=== PATIENT | male | born 1935 | race Caucasian/White ===

== ENCOUNTER 2020-01-07 10:47 | Outpatient (REF) | payer MEDICARE, SELFPAY ==
[2020-01-07 14:31] LABS: Estimated Average Glucose 131 mg/dL; Hemoglobin A1c % 6.2 %
[2020-01-07 14:46] LABS: Cholesterol 149 mg/dL; HDL Cholesterol 35 mg/dL; LDL Cholesterol Calculated 83 mg/dl; Triglycerides 158 mg/dL
== END 2020-01-07 10:48 | disposition home or self-care (01) ==
LOC: HO.10HDL 10:47
PROVIDERS: PCP Internal Medicine; Visit Provider Internal Medicine
DX: E11.69 Type 2 diabetes mellitus with other specified complication (principal); E78.5 Hyperlipidemia, unspecified
CPT/HCPCS: 80061; 83036

== ENCOUNTER 2020-02-26 12:09 | Outpatient (REF) | payer MEDICARE, SELFPAY ==
[2020-02-26 14:36] LABS: Estimated Average Glucose 128 mg/dL; Hemoglobin A1c % 6.1 %
[2020-02-26 14:59] LABS: Cholesterol 134 mg/dL; HDL Cholesterol 32 mg/dL; LDL Cholesterol Calculated 70 mg/dl; Triglycerides 160 mg/dL
== END 2020-02-26 12:10 | disposition home or self-care (01) ==
LOC: HO.10HDL 12:09
PROVIDERS: Visit Provider Internal Medicine
DX: E11.9 Type 2 diabetes mellitus without complications (principal)
CPT/HCPCS: 36415; 80061; 83036

== ENCOUNTER 2020-06-18 08:33 | Outpatient (REF) | payer MEDICARE, SELFPAY ==
[2020-06-18 10:00] LABS: MANUAL DIFF FLAG NO
[2020-06-18 10:06] LABS: Basophils Percent Auto 0.3 % (0-2); Eosinophils Absolute Auto 0.2 X10*3/uL (0.0-0.4); Eosinophils Percent Auto 2.7 % (0-4); Hematocrit 45.9 % (42-52); Hemoglobin 14.9 g/dl (14.0-18.0); Imm Gran Abs Auto 0.02 X10*3/uL (0.00-0.03); Imm Gran Pct Auto 0.3 % (0.0-0.4); Lymphocytes Absolute Auto 1.8 X10*3/uL (1.2-4.9); Mean Corpuscular HGB Conc 32.5 g/dl (31.0-36.0); Mean Corpuscular Hemoglobin 31.4 pg (27.0-33.0); Mean Corpuscular Volume 96.6 fL (80-98); Monocytes Absolute Auto 0.6 X10*3/uL (0.1-1.2); Monocytes Percent Auto 7.4 % (2-11); Neutrophils Absolute Auto 4.8 X10*3/uL (2.0-8.3); Neutrophils Percent Auto 65.3 % (45-73); Platelet Count 185 X10*3/uL (160-400); Red Blood Count 4.75 X10*6/uL (4.60-5.80); Red Cell Distribution Width 13.2 % (11.0-16.0); White Blood Count 7.4 X10*3/uL (4.8-10.8)
[2020-06-18 10:10] LABS: Estimated Average Glucose 143 mg/dL; Hemoglobin A1c % 6.6 %
[2020-06-18 10:33] LABS: Alanine Aminotransferase 15 U/L (0-40); Alkaline Phosphatase 48 U/L (39-117); Anion Gap 13 (12-20); Aspartate Amino Transferase 15 U/L (5-37); Bilirubin Total 0.8 mg/dL (0.0-1.0); Blood Urea Nitrogen 20 mg/dL (9-16); Calcium 9.3 mg/dL (8.4-10.2); Carbon Dioxide 26 mmol/L (22-29); Chloride 105 mmol/L (96-108); Cholesterol 144 mg/dL; Estimated Glomerular Filt Rate > 60; Glucose Fasting 140 mg/dL (60-99); HDL Cholesterol 31 mg/dL; LDL Cholesterol Calculated 84 mg/dl; Potassium 4.7 mmol/L (3.3-5.1); Sodium 139 mmol/L (135-145); Total Protein 6.9 g/dL (6.5-8.0); Triglycerides 148 mg/dL
== END 2020-06-18 08:34 | disposition home or self-care (01) ==
LOC: HO.10HDL 08:33
PROVIDERS: Visit Provider Internal Medicine
DX: Z00.00 Encounter for general adult medical examination without abnormal findings (principal); E11.9 Type 2 diabetes mellitus without complications
CPT/HCPCS: 36415; 80053; 80061; 83036; 85025

== ENCOUNTER 2020-08-27 10:07 | Outpatient (REF) | payer MEDICARE, SELFPAY ==
--- NOTE | ~2020-08-27 | XR_ITS ---
EXAMINATION: XR CHEST CLINICAL INFORMATION: Cough COMPARISON: Previous chest x-ray April 2018 TECHNIQUE: 2 views of the chest were obtained. FINDINGS: The cardiac silhouette is slightly enlarged but stable. The thoracic aorta is tortuous and calcified. Hilar and mediastinal contours are otherwise unremarkable. The lung volumes are low. There are increased interstitial markings suggestive of interstitial lung disease. There is no pleural effusion. There are degenerative changes of the spine and ossification of the anterior longitudinal ligament. XR/XR chest 2V IMPRESSION: Slightly enlarged cardiac silhouette. Interstitial lung disease. This could be better evaluated with chest CT scan.
== END 2020-08-27 10:08 | disposition home or self-care (01) ==
LOC: HO.XRAY 10:07
PROVIDERS: PCP Internal Medicine; Visit Provider Nurse Practitioner Family
DX: R05 Cough (principal)
CPT/HCPCS: 71046

== ENCOUNTER 2020-09-01 10:01 | Day surgery (SDC) | payer MEDICARE, SELFPAY ==
--- NOTE | 2020-08-27 14:16 | MHC.SHP ---
Pre-Procedural Eval Section A Date of Service: 08/27/20 The patient is an INPATIENT: No The History & Physical has been completed within 30 days and I have reviewed it.: Yes Section B Chief Complaint: cataract Allergies: Allergies Allergy/AdvReac Type Severity Reaction Status Date / Time No Known Allergies Allergy Verified 08/27/20 09:43 Plan Diagnosis/Plan: Unchanged I have reviewed the history and physical and performed a pertinent physical examination on my patient. No changes have occurred unless specified.
[2020-08-27 15:40] VITALS: BMI 25.2
--- NOTE | 2020-08-29 10:19 | P.CONAN_ITS ---
Documented by User: Esperanza Tellez 08/29/20 10:29 HPI - Anesthesia Eval Consult details Narrative: 85yo M for Left Cataract Multifocal with IOL Insertion PCP cleared Recent sick visit with nasal congestion and productive cough. Per pt, started on Zpak and feeling much better. Will be finished Zpak by DOS. No previous cataract on record. [facility] Active Problems Active Problems: All Active Problems (Updated 08/28/20 @ 09:14 by ANGEL Craig) Enlarged heart (Acute) Interstitial lung disease (Acute) Productive cough (Acute) Preop exam for internal medicine (Acute) Diabetes mellitus (Acute) Hypertension (Acute) Hyperlipidemia associated with type 2 diabetes mellitus (Acute) Past Medical History Medical History Angina pectoris COVID-19 vaccine series completed Elevated cholesterol Hard of hearing HTN (hypertension) Type II diabetes mellitus Family History Family History Father No problems noted. Mother No problems noted. Surgical History Surgical History Basal cell carcinoma H/O rectal polypectomy Hx of colonoscopy Social History Social History Housing: Apartment Are you a primary long term care social worker to a significant other at home: No Do you presently have visiting nurse or other home services: No Alcohol intake: never Patient Tobacco Use Status: Former Tobacco user Tobacco use type: Cigarette Use of substances other than those prescribed or required for medical reasons: No Have you been hit, kicked, punched, or otherwise hurt by someone within the past year? If so, by whom?: No Advance Directives: No Advance Directives Information Provided: No Advance Directives on File: No Recently lost weight without trying: No Eating poorly because of decreased appetite: No Nutrition Risks: No Nutritional Risk Current occupational status: retired Meds Allergies Allergy/AdvReac Type Severity Reaction Status Date / Time No Known Allergies Allergy Verified 08/27/20 09:43 Home Medications Medication Instructions Recorded Confirmed Last Taken Type nitroglycerin 0.4 mg sublingual 0.4 mg SUBLINGUAL Q5M PRN 11/06/19 08/27/20 Unknown History tablet Exam Exam Date and Time: August 29, 2020 1019 Height,Weight and Vital Signs: Height 5 ft 11 in Weight 82.1 kg Assessment and Plan Assessment Anesthesia Assessment: Chart Reviewed Documented by User: Latisha Morrow 09/01/20 11:52 [facility] Past Medical History Medical History Angina pectoris COVID-19 vaccine series completed Elevated cholesterol Hard of hearing HTN (hypertension) Type II diabetes mellitus Family History Family History Father No problems noted. Mother No problems noted. Surgical History Surgical History Basal cell carcinoma H/O rectal polypectomy Hx of colonoscopy Social History Social History Housing: Apartment Are you a primary long term care social worker to a significant other at home: No Do you presently have visiting nurse or other home services: No Alcohol intake: never Patient Tobacco Use Status: Former Tobacco user Tobacco use type: Cigarette Use of substances other than those prescribed or required for medical reasons: No Have you been hit, kicked, punched, or otherwise hurt by someone within the past year? If so, by whom?: No Advance Directives: No Advance Directives Information Provided: No Advance Directives on File: No Recently lost weight without trying: No Eating poorly because of decreased appetite: No Nutrition Risks: No Nutritional Risk Current occupational status: retired Meds Allergies Allergy/AdvReac Type Severity Reaction Status Date / Time No Known Allergies Allergy Verified 08/27/20 09:43 Home Medications Medication Instructions Recorded Confirmed Last Taken Type nitroglycerin 0.4 mg sublingual 0.4 mg SUBLINGUAL Q5M PRN 11/06/19 08/27/20 Unknown History tablet Exam Airway Mallampati Class: II TM Dist: >3cm Neck ROM: Full Denture: Upper Heart: rrr Lungs: cta Assessment and Plan Assessment Anesthesia Assessment: Anesthesia Plan Discussed and Chart Reviewed Final Anesthetic Review NPO: Yes ASA Class: III Final Preanesthetic Review: No Changes in Pt Med Stat and Consent Obtai natalie/Reviewed Patient Risk: Low Procedure Risk: Low Anesthetic Plan Anesthetic Plan: MAC: Disposition: Standard PACU
[2020-09-01 10:54] LABS: Glucose, Whole Blood 128 mg/dL (60-115)
[2020-09-01 11:24] VITALS: BP 183/77; PULSE 56; RESP 20; TEMP 36.4; O2SAT 96
[2020-09-01] MEDS: Lactated Ringers 500 ML 50 ML IV (11:27)
[2020-09-01] MEDS: Tetracaine HCl/PF 0.5% Oph Sol 4 ML DROPS 1 DROP EYE-LEFT (11:28)
[2020-09-01] MEDS: Tropicamide 1 % Ophth Sol 3 ML BTL 1 DROP EYE-LEFT ×3 (11:28→11:29)
[2020-09-01] MEDS: Phenylephrine HCL 2.5% Oph SoL 2 ML BOTTLE 1 DROP EYE-LEFT ×3 (11:28→11:29)
--- NOTE | 2020-09-01 12:39 | HO.PNOPHT ---
Ophthalmology Procedure Procedure Date of Service: 09/01/20 Ophthalmology Viscoelastic: Healromán Duet Dual Pack Pro Ophthalmology Lenses: [id number] [id number] (19) Procedure Notes: PREOPERATIVE DIAGNOSIS: Decreased visual acuity left eye secondary to cataract POSTOPERATIVE DIAGNOSIS: Same PROCEDURE: Left cataract extraction with intraocular lens insertion SURGEON: Mina Streeter M.D. ANESTHESIA: Topical/MAC ESTIMATED BLOOD LOSS: None COMPLICATIONS: None After obtaining informed consent, the patient was brought to the operation room suite and placed in the supine position. After adequate sedation per anesthesia, topical drops of Tetracaine were given to the left eye. The eye was then prepped and draped in the usual sterile fashion. The operating room microscope was then positioned over the operative eye and a lid speculum placed. A paracentesis was created. Viscoelastic was then instilled into the anterior chamber. A three plane incision was then created temporally, utilizing a 2.85 mm keratome. Capsulotomy forceps were then utilized to create a circular tear capsulotomy. Hydrodissection and hydrodelineation were carried out until adequate mobilization of the nucleus occurred. Phacoemulsification was then utilized to remove the dense central nucleus followed by removal of the cortical material utilizing the automated aspiration irrigation unit. Viscoat elastic was instilled into the posterior capsular bag followed by placement of a posterior chamber intraocular lens without difficulty. The residual Viscoat elastic was then removed utilizing the automated IA machine. The wound was check and found to be watertight. The patient tolerated the procedure well and the lid speculum was removed. Intracameral injection of Vigamox 0.1 mL followed by a subtenon injection of Kenalog-40 0.2 mL were administered. The patient will be seen in the a.m.
[2020-09-01 13:13] VITALS: BP 176/72; PULSE 52; RESP 16; TEMP 36.2; O2SAT 95
== END 2020-09-01 13:25 | disposition home or self-care (01) ==
PROVIDERS: PCP Internal Medicine; Visit Provider Ophthalmology
PROC: (CPT 66985; principal; 2020-09-01 12:40)
DX: H25.12 Age-related nuclear cataract, left eye (principal); H52.4 Presbyopia; I20.9 Angina pectoris, unspecified; I10 Essential (primary) hypertension; E11.9 Type 2 diabetes mellitus without complications; Z87.891 Personal history of nicotine dependence; Z85.828 Personal history of other malignant neoplasm of skin; Z79.84 Long term (current) use of oral hypoglycemic drugs; Z79.899 Other long term (current) drug therapy; Z86.19 Personal history of other infectious and parasitic diseases
CPT/HCPCS: 66984; 82947; J2250; J3010; J3300; V2632

== ENCOUNTER 2020-09-11 09:55 | Outpatient (REF) | payer MEDICARE, SELFPAY ==
[2020-09-11 10:51] LABS: MANUAL DIFF FLAG NO
[2020-09-11 11:08] LABS: Basophils Percent Auto 0.5 % (0-2); Eosinophils Absolute Auto 0.1 X10*3/uL (0.0-0.4); Hemoglobin 15.4 g/dl (14.0-18.0); Imm Gran Abs Auto 0.02 X10*3/uL (0.00-0.03); Imm Gran Pct Auto 0.4 % (0.0-0.4); Lymphocytes Absolute Auto 1.4 X10*3/uL (1.2-4.9); Mean Corpuscular HGB Conc 32.8 g/dl (31.0-36.0); Mean Corpuscular Hemoglobin 31.4 pg (27.0-33.0); Mean Corpuscular Volume 95.9 fL (80-98); Mean Platelet Volume 11.1 fL (9.4-12.4); Monocytes Absolute Auto 0.4 X10*3/uL (0.1-1.2); Monocytes Percent Auto 6.9 % (2-11); Neutrophils Absolute Auto 3.7 X10*3/uL (2.0-8.3); Neutrophils Percent Auto 65.2 % (45-73); Platelet Count 169 X10*3/uL (160-400); Red Cell Distribution Width 13.4 % (11.0-16.0); White Blood Count 5.6 X10*3/uL (4.8-10.8)
[2020-09-11 11:10] LABS: Estimated Average Glucose 140 mg/dL; Hemoglobin A1c % 6.5 %
[2020-09-11 11:28] LABS: Alanine Aminotransferase 16 U/L (0-40); Alkaline Phosphatase 51 U/L (39-117); Anion Gap 13 (12-20); Aspartate Amino Transferase 20 U/L (5-37); Bilirubin Total 0.9 mg/dL (0.0-1.0); Blood Urea Nitrogen 18 mg/dL (9-16); Calcium 9.1 mg/dL (8.4-10.2); Carbon Dioxide 26 mmol/L (22-29); Chloride 106 mmol/L (96-108); Cholesterol 129 mg/dL; Estimated Glomerular Filt Rate 56; Glucose Fasting 140 mg/dL (60-99); HDL Cholesterol 33 mg/dL; LDL Cholesterol Calculated 69 mg/dl; Potassium 4.6 mmol/L (3.3-5.1); Sodium 140 mmol/L (135-145); Total Protein 7.2 g/dL (6.5-8.0); Triglycerides 135 mg/dL
[2020-09-11 11:29] LABS: B Type Natriuretic Peptide 88 pg/mL (<100)
== END 2020-09-11 09:56 | disposition home or self-care (01) ==
LOC: HO.LAB 09:55
PROVIDERS: Absent Provider Internal Medicine; PCP Internal Medicine; Visit Provider Nurse Practitioner Family
DX: I51.7 Cardiomegaly (principal); J84.9 Interstitial pulmonary disease, unspecified; E11.65 Type 2 diabetes mellitus with hyperglycemia
CPT/HCPCS: 36415; 80053; 80061; 82947; 83036; 83880; 85025

== ENCOUNTER 2020-09-22 08:51 | Day surgery (SDC) | payer MEDICARE, SELFPAY ==
[2020-08-27 15:45] VITALS: BMI 25.2
--- NOTE | 2020-09-22 07:06 | MHC.SHP ---
Pre-Procedural Eval Section A Date of Service: 09/22/20 Section B Chief Complaint: cataract Allergies: Allergies Allergy/AdvReac Type Severity Reaction Status Date / Time No Known Allergies Allergy Verified 08/27/20 09:43 Plan I have reviewed the history and physical and performed a pertinent physical examination on my patient. No changes have occurred unless specified.
[2020-09-22 12:05] VITALS: BP 151/60; PULSE 54; RESP 18; TEMP 36.1; O2SAT 98
[2020-09-22 12:16] LABS: Glucose, Whole Blood 125 mg/dL (60-115)
[2020-09-22] MEDS: Lactated Ringers 500 ML 50 ML IVCONT (12:20)
[2020-09-22] MEDS: Tetracaine HCl/PF 0.5% Oph Sol 4 ML DROPS 1 DROP EYE-RIGHT (12:23)
[2020-09-22] MEDS: Tropicamide 1 % Ophth Sol 3 ML BTL 1 DROP EYE-RIGHT ×3 (12:24→12:33)
[2020-09-22] MEDS: Phenylephrine HCL 2.5% Oph SoL 2 ML BOTTLE 1 DROP EYE-RIGHT ×3 (12:26→12:35)
--- NOTE | 2020-09-22 12:40 | HO.ANESPROP2 ---
HPI - Anesthesia Eval Consult details Narrative: aright eye cataract PMF Active Problems Active Problems: All Active Problems (Updated 08/28/20 @ 09:14 by ANGEL Craig) Enlarged heart (Acute) Interstitial lung disease (Acute) Productive cough (Acute) Preop exam for internal medicine (Acute) Diabetes mellitus (Acute) Hypertension (Acute) Hyperlipidemia associated with type 2 diabetes mellitus (Acute) Past Medical History Medical History Angina pectoris COVID-19 vaccine series completed Elevated cholesterol Hard of hearing HTN (hypertension) Type II diabetes mellitus Family History Family History Father No problems noted. Mother No problems noted. Family history of problems with anesthesia: No Surgical History Surgical History Basal cell carcinoma H/O rectal polypectomy Hx of colonoscopy History of Problems with Anesthesia: No Social History Social History Housing: Apartment Are you a primary home care administrator to a significant other at home: No Do you presently have visiting nurse or other home services: No Alcohol intake: never Patient Tobacco Use Status: Former Tobacco user Tobacco use type: Cigarette Use of substances other than those prescribed or required for medical reasons: No Have you been hit, kicked, punched, or otherwise hurt by someone within the past year? If so, by whom?: No Are you DNR?: No Advance Directives: No Advance Directives Information Provided: No Advance Directives on File: No Recently lost weight without trying: No Eating poorly because of decreased appetite: No Nutrition Risks: No Nutritional Risk Current occupational status: retired Meds Allergies Allergy/AdvReac Type Severity Reaction Status Date / Time No Known Allergies Allergy Verified 09/22/20 11:55 Active Medications: Current Medications Generic Name Dose Route Start Last Admin Trade Name Freq PRN Reason Stop Dose Admin Lactated Ringer's 500 mls @ 50 mls/hr 09/22/20 07:45 09/22/20 12:20 Lr IVCONT 50 mls/hr .Q10H CARLI Administration Povidone Iodine 1 appl 09/22/20 07:06 Povidone Iodine 5 % Ophth Soln 30 Ml Bottle EYE-RIGHT PREOP PRN Pre-Op Surgical Implant Prophy Home Medications Medication Instructions Recorded Confirmed Last Taken Type nitroglycerin 0.4 mg sublingual 0.4 mg SUBLINGUAL Q5M PRN 11/06/19 08/27/20 Unknown History tablet (Nitrostat) Exam Exam Date and Time: September 22, 2020 1240 Height,Weight and Vital Signs: Height 5 ft 11 in Weight 82.1 kg Last Vital Signs Temp 97.0 F 09/22/20 12:05 Pulse 54 09/22/20 12:05 Resp 18 09/22/20 12:05 BP 151/60 H 09/22/20 12:05 Pulse Ox 98 09/22/20 12:05 Pertinent Lab Results Pertinent Lab Results: Laboratory Tests 09/22/20 12:12 POC Glucose 125 H Airway Mallampati Class: II TM Dist: >3cm Neck ROM: Full Denture: Upper and Lower Loose/Missing/Broken Teeth: Yes Heart: rrr +s1s2 Lungs: cta b/l Assessment and Plan Assessment Anesthesia Assessment: Anesthesia Plan Discussed and Chart Reviewed Final Anesthetic Review Family History of Problems with Anesthesia: No History of Problems with Anesthesia: No NPO: Yes ASA Class: III Final Preanesthetic Review: No Changes in Pt Med Stat, Meds/Allgs Chart Reviewed, Consent Obtained/Reviewed and Anes Risks/Benef Reviewed Patient Risk: Intermediate Procedure Risk: Low Assessment/Block/Sedation in SS: Assess/Block/Sedation-SS Anesthetic Plan Anesthetic Plan: MAC: and Agree w/ Assess. and Plan Disposition: Standard PACU
--- NOTE | 2020-09-22 13:31 | HO.PNOPHT ---
Ophthalmology Procedure Procedure Date of Service: 09/22/20 Ophthalmology Viscoelastic: Gabrielle Jacobst Dual Pack Pro Ophthalmology Lenses: TECSAJI [id number] (19) Procedure Notes: PREOPERATIVE DIAGNOSIS: Decreased visual acuity right eye secondary to cataract POSTOPERATIVE DIAGNOSIS: Same PROCEDURE: Right cataract extraction with intraocular lens insertion SURGEON: Mina Streeter M.D. ANESTHESIA: Topical/MAC ESTIMATED BLOOD LOSS: None COMPLICATIONS: None After obtaining informed consent, the patient was brought to the operating room suite and placed in the supine position. After adequate sedation per anesthesia, topical drops of Tetracaine were given to the right eye. The eye was then prepped and draped in the usual sterile fashion. The operating room microscope was then positioned over the operative eye and a lid speculum placed. A paracentesis was created. Viscoelastic was then instilled into the anterior chamber. A three plane incision was then created temporally, utilizing a 2.85 mm keratome. Capsulotomy forceps were then utilized to create a circular tear capsulotomy. Hydrodissection and hydrodelineation were carried out until adequate mobilization of the nucleus occurred. Phacoemulsification was then utilized to remove the dense central nucleus followed by removal of the cortical material utilizing the automated aspiration irrigation unit. Viscoelastic was instilled into the posterior capsular bag followed by placement of a posterior chamber intraocular lens without difficulty. The residual Viscoelastic was then removed utilizing the automated IA machine. The wound was checked and found to be watertight. The patient tolerated the procedure well and the lid speculum was removed. Intracameral injection of Vigamox 0.1 mL followed by a subtenon injection of Kenalog-40 0.2 mL were administered. The patient will be seen in the a.m.
[2020-09-22 13:57] VITALS: BP 155/74; PULSE 52; RESP 18; TEMP 36.2; O2SAT 98
== END 2020-09-22 14:06 | disposition home or self-care (01) ==
PROVIDERS: PCP Internal Medicine; Visit Provider Ophthalmology
PROC: (CPT 66985; principal; 2020-09-22 12:10)
DX: H25.11 Age-related nuclear cataract, right eye (principal); H52.4 Presbyopia; I10 Essential (primary) hypertension; E11.9 Type 2 diabetes mellitus without complications; Z79.84 Long term (current) use of oral hypoglycemic drugs; Z79.899 Other long term (current) drug therapy; Z87.891 Personal history of nicotine dependence
CPT/HCPCS: 66984; 82947; J3010; J3300; V2632

== ENCOUNTER 2020-10-15 09:42 | Outpatient (REF) | payer MEDICARE, SELFPAY ==
--- NOTE | ~2020-10-15 | CT_ITS ---
EXAMINATION: CT CHEST WITH CONTRAST CLINICAL INFORMATION: Chronic cough, interstitial lung disease COMPARISON: Chest x-ray 08/27/2020 TECHNIQUE: Multidetector volumetric CT imaging of the chest was obtained after the administration of 65 mL of Omnipaque 350 intravenous contrast without immediate adverse reactions. Axial MIP volume rendering provided. Sagittal and coronal reformatted images were obtained. This CT examination was performed using dose optimization techniques as appropriate, variously including the following: *Automated exposure control *Adjustment of mA and/or kV according to patient size (this includes techniques or standardized protocols for targeted exams where dose is matched to indication/reason for exam; i.e. extremities or head) *Use of iterative reconstruction technique DLP: 120 mGy-cm FINDINGS: LUNGS: There is extensive subpleural reticulation bilaterally with basilar predominance, with some suspected areas of superimposed honeycombing/fibrosis. Mild associated bronchiectasis is noted in the lower lobes, along with volume loss. Overall appearance favors interstitial lung disease in a usual interstitial pneumonia (UIP) pattern. There are also scattered regions of tiny, somewhat linear calcifications in the subpleural regions favoring pulmonary ossification. Nodule along the right major fissure measuring 1.2 cm in length is suggestive of a lymph node. MEDIASTINUM: The visualized thyroid gland is unremarkable. There are subcentimeter mediastinal lymph nodes within the range of normal variation. There is cardiomegaly without pericardial effusion. Coronary artery calcifications are present. There is atherosclerotic calcification along the aorta. PLEURA: Left basilar pleural thickening is suspected, without significant pleural effusion. AXILLA: No lymphadenopathy. 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 CT/CT chest w con IMPRESSION: 1. Interstitial lung disease as described above, in a pattern most consistent with usual interstitial pneumonia (UIP). 2. Multifocal tiny calcifications in the subpleural regions, favoring associated pulmonary ossification. 3. Nodule along the right major fissure measuring 1.2 cm in length, suggestive of of a lymph node. 4. Cardiomegaly.
[2020-10-15] MEDS: iohexoL 350 MG/ML 100 ML INFUS..BTL IV (11:53)
== END 2020-10-15 09:43 | disposition home or self-care (01) ==
LOC: HO.CT 09:42
PROVIDERS: PCP Internal Medicine; Visit Provider Internal Medicine
DX: I51.7 Cardiomegaly (principal); J84.9 Interstitial pulmonary disease, unspecified; J43.9 Emphysema, unspecified; I25.10 Atherosclerotic heart disease of native coronary artery without angina pectoris; R06.00 Dyspnea, unspecified; Z87.891 Personal history of nicotine dependence
CPT/HCPCS: 71260; 99202; Q9967

== ENCOUNTER 2020-10-21 10:15 | Outpatient (REF) | payer MEDICARE, SELFPAY ==
--- NOTE | 2020-10-21 17:26 | PFT_ITS ---
FLOWS: FEV1 83% of predicted at 2.45 L. FVC 62% of predicted at 2.63 L. FEV1 to FVC ratio of 0.93. No bronchodilator response except in small to medium airways. LUNG VOLUMES: Total lung capacity 59% of predicted at 4.46 L. Residual volume 74% of predicted at 2.14 L. Slow vital capacity 50% of predicted at 2.32 L. Expiratory reserve volume 74% of predicted at 0.93 L. Diffusion capacity is severely decreased, diffusion capacity adjusts to being moderately decreased after correction for alveolar ventilation. IMPRESSION: Moderate restrictive ventilatory defect with no bronchodilator response except in small to medium airways. Decreased diffusion capacity in combination with restrictive ventilatory defect suggests underlying interstitial pulmonary disease. Clinical correlation is advised. MD JAMMIE Salinas/MODL / [id number]
== END 2020-10-21 10:16 | disposition home or self-care (01) ==
LOC: HO.RESP 10:15
PROVIDERS: PCP Internal Medicine; Visit Provider Internal Medicine Pulmonary Disease
DX: J84.9 Interstitial pulmonary disease, unspecified (principal)
CPT/HCPCS: 94060; 94727; 94729

== ENCOUNTER → 2020-10-30 10:02 | Outpatient (BNVA) | payer MEDICARE, SELFPAY | PROVIDERS: PCP Internal Medicine; Visit Provider Internal Medicine Pulmonary Disease | DX: J84.9 Interstitial pulmonary disease, unspecified (principal); J43.9 Emphysema, unspecified; Z99.81 Dependence on supplemental oxygen | CPT/HCPCS: 99212 ==

== ENCOUNTER 2021-01-20 09:06 | Outpatient (REF) | payer MEDICARE, SELFPAY ==
[2021-01-20 09:58] LABS: Estimated Average Glucose 123 mg/dL; Hemoglobin A1c % 5.9 %
[2021-01-20 12:46] LABS: Cholesterol 168 mg/dL; HDL Cholesterol 35 mg/dL; LDL Cholesterol Calculated 101 mg/dl; Triglycerides 161 mg/dL
== END 2021-01-20 09:07 | disposition home or self-care (01) ==
LOC: HO.LAB 09:06
PROVIDERS: PCP Internal Medicine; Visit Provider Internal Medicine
DX: Z00.00 Encounter for general adult medical examination without abnormal findings (principal); E11.9 Type 2 diabetes mellitus without complications
CPT/HCPCS: 36415; 80061; 83036

== ENCOUNTER 2021-03-02 15:16 | Outpatient (REF) | payer MEDICARE, SELFPAY | END 2021-03-02 15:17 | disposition home or self-care (01) | LOC: HO.LAB 15:16 | PROVIDERS: Visit Provider Internal Medicine | DX: Z20.822 Contact with and (suspected) exposure to COVID-19 (principal); R09.89 Other specified symptoms and signs involving the circulatory and respiratory systems | CPT/HCPCS: U0003; U0005 ==

== ENCOUNTER 2021-04-20 09:49 | Outpatient (REF) | payer MEDICARE, SELFPAY ==
[2021-04-20 11:24] LABS: Cholesterol 142 mg/dL; HDL Cholesterol 38 mg/dL; LDL Cholesterol Calculated 75 mg/dl; Triglycerides 147 mg/dL
== END 2021-04-20 09:50 | disposition home or self-care (01) ==
LOC: HO.LAB 09:49
PROVIDERS: Absent Provider Internal Medicine; PCP Internal Medicine; Visit Provider Internal Medicine Pulmonary Disease
DX: Z00.00 Encounter for general adult medical examination without abnormal findings (principal); J43.9 Emphysema, unspecified; J84.9 Interstitial pulmonary disease, unspecified; Z99.81 Dependence on supplemental oxygen
CPT/HCPCS: 36415; 80061; 99212

== ENCOUNTER 2021-07-28 08:51 | Outpatient (REF) | payer MEDICARE, SELFPAY ==
[2021-07-28 09:04] LABS: MANUAL DIFF FLAG NO
[2021-07-28 10:13] LABS: Basophils Percent Auto 0.3 % (0-2); Eosinophils Absolute Auto 0.1 X10*3/uL (0.0-0.4); Eosinophils Percent Auto 2.2 % (0-4); Hemoglobin 15.5 g/dl (14.0-18.0); Imm Gran Abs Auto 0.01 X10*3/uL (0.00-0.03); Imm Gran Pct Auto 0.2 % (0.0-0.4); Lymphocytes Absolute Auto 1.9 X10*3/uL (1.2-4.9); Lymphocytes Percent Auto 29.8 % (20-40); Mean Corpuscular HGB Conc 32.3 g/dl (31.0-36.0); Mean Corpuscular Hemoglobin 31.4 pg (27.0-33.0); Mean Corpuscular Volume 97.2 fL (80.0-98.0); Mean Platelet Volume 10.5 fL (9.4-12.4); Monocytes Absolute Auto 0.5 X10*3/uL (0.1-1.2); Monocytes Percent Auto 7.8 % (2-11); Neutrophils Absolute Auto 3.7 x10*3/uL (2.0-8.3); Neutrophils Percent Auto 59.7 % (45-73); Platelet Count 176 X10*3/uL (160-400); Red Blood Count 4.94 X10*6/uL (4.60-5.80); Red Cell Distribution Width 13.4 % (11.0-16.0); White Blood Count 6.3 X10*3/uL (4.8-10.8)
[2021-07-28 10:27] LABS: Estimated Average Glucose 123 mg/dL; Hemoglobin A1c % 5.9 %
[2021-07-28 10:53] LABS: Alanine Aminotransferase 11 U/L (0-40); Albumin Level 4.1 g/dL (3.5-5.0); Alkaline Phosphatase 55 U/L (39-117); Anion Gap 16 (12-20); Aspartate Amino Transferase 18 U/L (5-37); Bilirubin Total 1.2 mg/dL (0.0-1.0); Blood Urea Nitrogen 12 mg/dL (9-16); Carbon Dioxide 22 mmol/L (22-29); Chloride 108 mmol/L (96-108); Cholesterol 130 mg/dL; Estimated Glomerular Filt Rate > 60; Glucose Fasting 117 mg/dL (60-99); HDL Cholesterol 31 mg/dL; LDL Cholesterol Calculated 71 mg/dl; Potassium 3.8 mmol/L (3.3-5.1); Sodium 142 mmol/L (135-145); Total Protein 7.5 g/dL (6.5-8.0); Triglycerides 142 mg/dL
[2021-07-28 11:01] LABS: Thyroid Stimulating Hormone 1.46 uIU/mL (0.32-4.0)
[2021-07-28 12:40] LABS: Creatinine Urine 174.17 mg/dL; Microalbum/Creatinine Ratio Ur 80.3 ug/mg cr
== END 2021-07-28 08:52 | disposition home or self-care (01) ==
LOC: HO.LAB 08:51
PROVIDERS: PCP Internal Medicine; Visit Provider Internal Medicine
DX: Z00.00 Encounter for general adult medical examination without abnormal findings (principal); Z13.0 Encounter for screening for diseases of the blood and blood-forming organs and certain disorders involving the immune mechanism; E11.9 Type 2 diabetes mellitus without complications
CPT/HCPCS: 36415; 80053; 80061; 82043; 83036; 84443; 85025

== ENCOUNTER 2021-10-16 07:27 | Outpatient (REF) | payer MEDICARE, SELFPAY ==
[2021-10-16 08:12] LABS: Cholesterol 127 mg/dL; Estimated Average Glucose 114 mg/dL; Glucose Fasting 114 mg/dL (60-99); HDL Cholesterol 33 mg/dL; Hemoglobin A1C 136.5002 umol/L; Hemoglobin A1c % 5.6 %; LDL Cholesterol Calculated 69 mg/dl; Triglycerides 128 mg/dL
[2021-10-16 08:35] LABS: Thyroid Stimulating Hormone 1.92 uIU/mL (0.32-4.0)
== END 2021-10-16 07:28 | disposition home or self-care (01) ==
LOC: HO.LAB 07:27
PROVIDERS: PCP Internal Medicine; Visit Provider Internal Medicine
DX: E78.5 Hyperlipidemia, unspecified (principal); E03.9 Hypothyroidism, unspecified; E11.65 Type 2 diabetes mellitus with hyperglycemia
CPT/HCPCS: 36415; 80061; 82947; 83036; 84443

== ENCOUNTER → 2021-10-20 09:47 | Outpatient (BNVA) | payer MEDICARE, SELFPAY | PROVIDERS: PCP Internal Medicine; Visit Provider Internal Medicine Pulmonary Disease | DX: J84.9 Interstitial pulmonary disease, unspecified (principal); J43.9 Emphysema, unspecified; Z99.81 Dependence on supplemental oxygen | CPT/HCPCS: 99212 ==

== ENCOUNTER 2022-01-26 06:49 | Outpatient (REF) | payer MEDICARE, SELFPAY ==
[2022-01-26 07:40] LABS: Estimated Average Glucose 105 mg/dL; Hemoglobin A1c % 5.3 %
[2022-01-26 07:52] LABS: Glucose Fasting 114 mg/dL (60-99)
== END 2022-01-26 06:50 | disposition home or self-care (01) ==
LOC: HO.LAB 06:49
PROVIDERS: PCP Internal Medicine; Visit Provider Internal Medicine
DX: E11.65 Type 2 diabetes mellitus with hyperglycemia (principal)
CPT/HCPCS: 36415; 82947; 83036

== ENCOUNTER 2022-02-21 22:11 | Emergency (ER) | payer MEDICARE, SELFPAY ==
--- NOTE | 2022-02-21 | ECG_ITS ---
Test Reason : FALL Blood Pressure : / mmHG Vent. Rate : 092 BPM Atrial Rate : 092 BPM P-R Int : 162 ms QRS Dur : 118 ms QT Int : 376 ms P-R-T Axes : 000 220 162 degrees QTc Int : 464 ms Poor data quality Normal sinus rhythm Right bundle branch block Possible Lateral infarct , age undetermined T wave abnormality, consider inferior ischemia Abnormal ECG When compared with ECG of 04-JUN-2009 19:38, Vent. rate has increased BY 33 BPM Poor data quality in current ECG precludes serial comparison Referred By: Generic ED Physician Electronically Signed By:TOM FERNANDEZ MD
--- NOTE | ~2022-02-21 | CT_ITS ---
Indication: Fall pain EXAMINATION: CT brain, CT cervical spine. Axial imaging with coronal and sagittal reformatted images. This CT examination was performed using dose optimization techniques as appropriate, variously including the following: *Automated exposure control *Adjustment of mA and/or kV according to patient size (this includes techniques or standardized protocols for targeted exams where dose is matched to indication/reason for exam; i.e. extremities or head) *Use of iterative reconstruction technique. Radiation dose [address] brain; There is no midline shift. There is no mass effect. There is no hemorrhage. The basal cisterns appear patent. The posterior fossa is grossly within normal limits. There is no extra-axial collection. There is atrophy and white matter ischemic change. No fracture on the bone windows. CT cervical spine; Degenerative changes. No acute fracture or dislocation. CT/CT cervical spine wo IV con IMPRESSION: Negative acute noncontrast CT of the brain. Atrophy and white matter ischemic changes. No acute fracture or dislocation of the cervical spine. Degenerative changes.
--- NOTE | ~2022-02-21 | CT_ITS ---
Indication: Fall pain EXAMINATION: CT brain, CT cervical spine. Axial imaging with coronal and sagittal reformatted images. This CT examination was performed using dose optimization techniques as appropriate, variously including the following: *Automated exposure control *Adjustment of mA and/or kV according to patient size (this includes techniques or standardized protocols for targeted exams where dose is matched to indication/reason for exam; i.e. extremities or head) *Use of iterative reconstruction technique. Radiation dose [address] brain; There is no midline shift. There is no mass effect. There is no hemorrhage. The basal cisterns appear patent. The posterior fossa is grossly within normal limits. There is no extra-axial collection. There is atrophy and white matter ischemic change. No fracture on the bone windows. CT cervical spine; Degenerative changes. No acute fracture or dislocation. CT/CT head/brain wo IV con IMPRESSION: Negative acute noncontrast CT of the brain. Atrophy and white matter ischemic changes. No acute fracture or dislocation of the cervical spine. Degenerative changes.
--- NOTE | ~2022-02-21 | XR_ITS ---
EXAMINATION: XR RIBS, RIGHT CLINICAL INFORMATION: Fall, pain COMPARISON: 08/27/2020 TECHNIQUE: Single view of the chest and 3 detailed views of the right ribs FINDINGS: Once again densities are seen in the lungs. Reticular and reticular nodular change. Low lung volumes. Some increasing right upper lung opacities. There is no effusion or pneumothorax. Detailed rib images demonstrate probable fractures of the 10th, ninth and eighth ribs on the right. XR/XR ribs RT min 3V w CXR1V IMPRESSION: Right rib fractures. No pneumothorax. No effusion. Some mildly increasing right upper lung opacities
[2022-02-21 22:23] VITALS: PULSE 91; RESP 18; TEMP 36.6; BMI 20.9
[2022-02-21 22:41] VITALS: BP 149/61; PULSE 81; RESP 20; TEMP 36.4; O2SAT 93
--- NOTE | 2022-02-21 23:00 | ED.GENADULT ---
HPI - General Adult General Chief complaint: Fall Stated complaint: Dizzy, fall, back pain per EMS Time Seen by Provider: 02/21/22 22:32 Source: patient and EMS Mode of arrival: EMS Limitations: other (Poor historian) History of Present Illness HPI narrative: Patient comes to the emergency room complaining of a fall. Patient states that he was out shopping for groceries and fell on his way back home. Patient was found on the ground in front of a patient's neighbor's porch. According to the patient, he did not hit his head, did not lose consciousness. However, patient states that he landed pretty hard and hit his ribs on the right side. Patient denies being on any blood thinners. Patient denies difficulty breathing. Patient states that he is supposed to be on O2 the whole time. Patient has been running around the street visiting people for 12+ hours without any oxygen. When EMS found the patient, patient seems cyanotic, blue lips, his oxygen saturation was in the low 80s, 2 L of oxygen did not improve oxygenation much, he is now on 4 L saturating in the low 90s. EMS reported that is unclear how long the patient was out on the street, he was very cold to touch. Related Data Home Medications Medication Instructions Recorded Confirmed Oxygen Home Use 02/04/21 01/27/22 Previous Rx's Medication Instructions Recorded loratadine 10 mg tablet 10 mg PO DAILY PRN allergy 08/27/20 symptoms #60 tabs nitroglycerin 0.4 mg sublingual 0.4 mg sublingual Q5M PRN Chest 10/16/20 tablet (Nitrostat) Pain #60 tabs atenolol 100 mg tablet 100 mg PO DAILY #90 tabs 01/20/21 metformin 500 mg tablet 500 mg PO BID #180 tabs 04/20/21 lisinopril 40 mg tablet 40 mg PO DAILY #90 tabs 08/06/21 fenofibrate 160 mg tablet 160 mg PO DAILY #90 tabs 09/29/21 triamcinolone acetonide 0.5 % 1 appl topical TID #15 grams 11/06/21 topical cream simvastatin 40 mg tablet 40 mg PO BEDTIME #90 tabs 01/04/22 Allergies Allergy/AdvReac Type Severity Reaction Status Date / Time No Known Allergies Allergy Verified 01/27/22 10:30 Review of Systems Review of Systems: Constitutional : No Weight loss, No Fever, No Chills, No Night Sweats, No Fatigue, No Malaise ENT/Mouth : No Hearing loss, No Ear Pain, No Nasal Congestion, No Sinus Pain, No Hoarseness, No sore throat, No Rhinorrhea, No Swallowing Difficulty Eyes: No Eye Pain, No Swelling, No Redness, No Foreign Body, No Discharge, No Vision Changes Cardiovascular : No Chest Pain, No SOB, No Dyspnea on Exertion, No Orthopnea, No Edema, No Palpitations Respiratory : No Cough, No Sputum, No Wheezing, No Smoke Exposure, No Dyspnea Gastrointestinal : No Nausea, No Vomiting, No Diarrhea, No Constipation, No abdominal Pain, No Hematochezia, No Melena Genitourinary : no irregular bleeding, No Dysuria, No Urinary Frequency, No Hematuria, No Urinary Incontinence, No Urgency, No Flank Pain, No Urinary Flow Changes, No Hesitancy Musculoskeletal : Complaining of right-sided rib pain No Myalgias, No Joint Swelling Skin : No Skin Lesions, No rash Neuro : No Weakness, No Numbness, No Paresthesias, No Loss of Consciousness, No Dizziness, No Headache Psych : No Anxiety/Panic, No Depression, No SI/HI/AH/VH, No Social Issues, Heme/Lymph: No Bruising, No Bleeding,No Lymphadenopathy Endocrine : No Polyuria, No Polydipsia, No Temperature Intolerance [facility] Past Medical History Medical History Angina pectoris COVID-19 vaccine series completed Elevated cholesterol Hard of hearing HTN (hypertension) Type II diabetes mellitus Surgical History Basal cell carcinoma H/O rectal polypectomy Hx of colonoscopy Family History Family History Father No problems noted. Mother No problems noted. Social History Social History Housing: House Are you a primary healthcare translator to a significant other at home: No Do you presently have visiting nurse or other home services: No Alcohol intake: never Patient Tobacco Use Status: Former Tobacco user Tobacco use type: Cigarette e-Cigarette/Vaping Use: Never Used Second Hand Smoke Exposure: No Advance Directives: No Advance Directives Information Provided: No service: Yes Current occupational status: retired Cognitive needs: No Hearing needs: Yes Vision needs: Yes Physical Exam ED Vital Signs: Vital Signs - 24 hr 02/21/22 22:23 02/21/22 22:41 02/22/22 01:02 Temperature 97.8 F 97.6 F Pulse Rate 91 81 96 Respiratory Rate 18 20 15 Blood Pressure 149/61 H Pulse Oximetry 93 98 Oxygen Delivery Method Room Air Nasal Cannula Nasal Cannula Oxygen Flow Rate 4 2 02/22/22 01:07 Temperature 98.0 F Pulse Rate 87 Respiratory Rate 27 H Blood Pressure 147/65 H Pulse Oximetry 91 L Oxygen Delivery Method Nasal Cannula Oxygen Flow Rate 2 BMI result Body Mass Index 20.9 Const Other: Appearance: Alert. Oriented X3. No acute distress. Eyes: Pupils equal, round and reactive to light. ENT: Pharynx normal. Neck: Normal inspection. Neck supple. No lymph nodes noted. No crepitus, no palpable step-offs, normal range of motion CVS: Normal heart rate and rhythm. Pulses normal. Normal S1 and S2 Respiratory: No respiratory distress. Breath sounds normal. No Wheezing. No rales Abdomen: Soft and nontender. No rigidity. No distention. Musculoskeletal: Pain to palpation on the right side of the ribs Skin: Skin warm and dry. Normal skin color. Normal skin turgor. Extremities: No lower extremity edema. No Lacerations. No Rash Neuro: Oriented X 3. No motor deficit. No sensory deficit. Moving all extremities. No slurred speech. CN 2 through 12 grossly intact Psych: calm, cooperative, normal affect Course Course Course Narrative: -patient receiving 1 dose of acetaminophen -of patient's labs and imaging are pending. Head cervical spine CT within normal limits, no acute findings. -patient has rib fractures -urinalysis pending. -discussed with the patient whether he needs help at home. Patient declined any help versus case management assistance. -patient's family requesting case management consult. Patient's lives in a care home, patient is very hesitant about going to a group home facility versus care home. -patient agreeable to stay -at this time, patient declined pain medication -case management and PT eval pending -physician observation started at 02:00 Medications Administered Discontinued Medications Generic Name Dose Route Start Last Admin Trade Name Freq PRN Reason Stop Dose Admin Acetaminophen 975 mg 02/21/22 22:58 02/21/22 23:05 Acetaminophen 325 Mg Tablet PO 02/21/22 22:59 975 mg ONCE ONE Administration Medical Decision Making Medical Decision Making [facility] Narrative: -patient has 3 rib fractures Patient's family requesting case management consult. Differential Diagnosis Differential Diagnoses: The differential diagnosis associated with the presentation includes (Contusion, costochondritis, rib fractures) Admission/Observation Consideration of admission/observation: Escalation of care including admission/observation considered (Patient is under observation, patient will be evaluated by Case Management and Physical therapy in the morning) Lab Data [facility] Lab Attestation statement: I reviewed the patient's lab results. 02/21/22 23:20 02/21/22 23:20 Labs: Lab Results 02/21/22 02/21/22 02/21/22 Range/Units 23:20 23:20 23:20 WBC 9.8 (4.8-10.8) X10*3/uL RBC 4.83 (4.60-5.80) X10*6/uL Hgb 15.6 (14.0-18.0) g/dl Hct 46.2 (42.0-52.0) % MCV 95.7 (80.0-98.0) fL MCH 32.3 (27.0-33.0) pg MCHC 33.8 (31.0-36.0) g/dl RDW 13.0 (11.0-16.0) % Plt Count 178 (160-400) X10*3/uL MPV 10.4 (9.4-12.4) fL Immature Gran % (Auto) 0.6 H (0.0-0.4) % Neut % (Auto) 92.3 H (45-73) % Lymph % (Auto) 3.7 L (20-40) % [place] % (Auto) 3.1 (2-11) % Eos % (Auto) 0.2 (0-4) % Baso % (Auto) 0.1 (0-2) % Lymph # (Auto) 0.4 L (1.2-4.9) X10*3/uL [place] # (Auto) 0.3 (0.1-1.2) X10*3/uL Eos # (Auto) 0.0 (0.0-0.4) X10*3/uL Baso # (Auto) 0.0 (0.0-0.2) X10*3/uL Abs Immat Gran (auto) 0.06 H (0.00-0.03) X10*3/uL Absolute Neuts (auto) 9.1 H (2.0-8.3) x10*3/uL Absolute Nucleated RBC 0.000 (0.0-0.012) X10*3/uL Nucleated RBC % (auto) 0.0 (0.0-0.2) /100WBC Smear Tech's Comments VERIFIED PT 11.4 (10.0-13.1) SEC INR 1.0 (0.9-1.1) VBG pH (7.32-7.43) VBG pCO2 mmHg VBG pO2 mmHg VBG HCO3 (22-26) mmol/L VBG O2 Saturation % VBG Base Excess mmol/L Sodium 140 (135-145) mmol/L Potassium 4.2 (3.3-5.1) mmol/L Chloride 103 (96-108) mmol/L Carbon Dioxide 26 (22-29) mmol/L Anion Gap 15 (12-20) BUN 40 H (9-16) mg/dL Creatinine 1.39 (0.5-1.4) mg/dL Estim Creat Clear Calc 38.4 Estimated GFR 49 Random Glucose 168 H (60-115) mg/dL Lactic Acid (0.5-2.0) mmol/L Lactic Acid F/U @ 2Hr (0.5-2.0) mmol/L Calcium 9.5 (8.4-10.2) mg/dL Magnesium (1.6-2.6) mg/dL Total Bilirubin 1.3 H (0.0-1.0) mg/dL Direct Bilirubin 0.6 H (0.0-0.5) mg/dL AST 115 H (5-37) U/L ALT 67 H (0-40) U/L Alkaline Phosphatase 53 (39-117) U/L Total Creatine Kinase 65 (38-174) U/L Troponin I High Sens (<3.5-35.0) ng/L B-Natriuretic Peptide (<100) pg/mL Total Protein 7.5 (6.5-8.0) g/dL Albumin 4.3 (3.5-5.0) g/dL Urine Color Urine Appearance Urine pH (5.0-9.0) Ur Specific [place] (1.005-1.025) Urine Protein (Neg-Trace) mg/dL Urine Glucose (UA) (Negative) mg/dL Urine Ketones (Negative) mg/dL Urine Blood (Negative) Urine Nitrite (Negative) Ur Leukocyte Esterase (Negative) Urine RBC (0-2) /HPF Urine WBC (0-5) /HPF Ur Squamous Epith Cells (0-2) /HPF Urine Bacteria (None Seen) Hyaline Casts (0-2) /LPF Ethyl Alcohol mg/dL COVID-19 ([facility]) (Negative) COVID-19 Clin Com 02/21/22 02/21/22 02/21/22 Range/Units 23:20 23:20 23:20 WBC (4.8-10.8) X10*3/uL RBC (4.60-5.80) X10*6/uL Hgb (14.0-18.0) g/dl Hct (42.0-52.0) % MCV (80.0-98.0) fL MCH (27.0-33.0) pg MCHC (31.0-36.0) g/dl RDW (11.0-16.0) % Plt Count (160-400) X10*3/uL MPV (9.4-12.4) fL Immature Gran % (Auto) (0.0-0.4) % Neut % (Auto) (45-73) % Lymph % (Auto) (20-40) % [place] % (Auto) (2-11) % Eos % (Auto) (0-4) % Baso % (Auto) (0-2) % Lymph # (Auto) (1.2-4.9) X10*3/uL [place] # (Auto) (0.1-1.2) X10*3/uL Eos # (Auto) (0.0-0.4) X10*3/uL Baso # (Auto) (0.0-0.2) X10*3/uL Abs Immat Gran (auto) (0.00-0.03) X10*3/uL Absolute Neuts (auto) (2.0-8.3) x10*3/uL Absolute Nucleated RBC (0.0-0.012) X10*3/uL Nucleated RBC % (auto) (0.0-0.2) /100WBC Smear Tech's Comments PT (10.0-13.1) SEC INR (0.9-1.1) VBG pH (7.32-7.43) VBG pCO2 mmHg VBG pO2 mmHg VBG HCO3 (22-26) mmol/L VBG O2 Saturation % VBG Base Excess mmol/L Sodium (135-145) mmol/L Potassium (3.3-5.1) mmol/L Chloride (96-108) mmol/L Carbon Dioxide (22-29) mmol/L Anion Gap (12-20) BUN (9-16) mg/dL Creatinine (0.5-1.4) mg/dL Estim Creat Clear Calc Estimated GFR Random Glucose (60-115) mg/dL Lactic Acid 2.4 H* (0.5-2.0) mmol/L Lactic Acid F/U @ 2Hr (0.5-2.0) mmol/L Calcium (8.4-10.2) mg/dL Magnesium (1.6-2.6) mg/dL Total Bilirubin (0.0-1.0) mg/dL Direct Bilirubin (0.0-0.5) mg/dL AST (5-37) U/L ALT (0-40) U/L Alkaline Phosphatase (39-117) U/L Total Creatine Kinase (38-174) U/L Troponin I High Sens 18.9 (<3.5-35.0) ng/L B-Natriuretic Peptide 88 (<100) pg/mL Total Protein (6.5-8.0) g/dL Albumin (3.5-5.0) g/dL Urine Color Urine Appearance Urine pH (5.0-9.0) Ur Specific [place] (1.005-1.025) Urine Protein (Neg-Trace) mg/dL Urine Glucose (UA) (Negative) mg/dL Urine Ketones (Negative) mg/dL Urine Blood (Negative) Urine Nitrite (Negative) Ur Leukocyte Esterase (Negative) Urine RBC (0-2) /HPF Urine WBC (0-5) /HPF Ur Squamous Epith Cells (0-2) /HPF Urine Bacteria (None Seen) Hyaline Casts (0-2) /LPF Ethyl Alcohol mg/dL COVID-19 ([facility]) (Negative) COVID-19 Clin Com 02/21/22 02/21/22 02/21/22 Range/Units 23:20 23:20 23:31 WBC (4.8-10.8) X10*3/uL RBC (4.60-5.80) X10*6/uL Hgb (14.0-18.0) g/dl Hct (42.0-52.0) % MCV (80.0-98.0) fL MCH (27.0-33.0) pg MCHC (31.0-36.0) g/dl RDW (11.0-16.0) % Plt Count (160-400) X10*3/uL MPV (9.4-12.4) fL Immature Gran % (Auto) (0.0-0.4) % Neut % (Auto) (45-73) % Lymph % (Auto) (20-40) % [place] % (Auto) (2-11) % Eos % (Auto) (0-4) % Baso % (Auto) (0-2) % Lymph # (Auto) (1.2-4.9) X10*3/uL [place] # (Auto) (0.1-1.2) X10*3/uL Eos # (Auto) (0.0-0.4) X10*3/uL Baso # (Auto) (0.0-0.2) X10*3/uL Abs Immat Gran (auto) (0.00-0.03) X10*3/uL Absolute Neuts (auto) (2.0-8.3) x10*3/uL Absolute Nucleated RBC (0.0-0.012) X10*3/uL Nucleated RBC % (auto) (0.0-0.2) /100WBC Smear Tech's Comments PT (10.0-13.1) SEC INR (0.9-1.1) VBG pH 7.33 (7.32-7.43) VBG pCO2 56 mmHg VBG pO2 29 mmHg VBG HCO3 30 H (22-26) mmol/L VBG O2 Saturation 36.0 % VBG Base Excess 2.8 mmol/L Sodium (135-145) mmol/L Potassium (3.3-5.1) mmol/L Chloride (96-108) mmol/L Carbon Dioxide (22-29) mmol/L Anion Gap (12-20) BUN (9-16) mg/dL Creatinine (0.5-1.4) mg/dL Estim Creat Clear Calc Estimated GFR Random Glucose (60-115) mg/dL Lactic Acid (0.5-2.0) mmol/L Lactic Acid F/U @ 2Hr (0.5-2.0) mmol/L Calcium (8.4-10.2) mg/dL Magnesium 1.5 L (1.6-2.6) mg/dL Total Bilirubin (0.0-1.0) mg/dL Direct Bilirubin (0.0-0.5) mg/dL AST (5-37) U/L ALT (0-40) U/L Alkaline Phosphatase (39-117) U/L Total Creatine Kinase (38-174) U/L Troponin I High Sens (<3.5-35.0) ng/L B-Natriuretic Peptide (<100) pg/mL Total Protein (6.5-8.0) g/dL Albumin (3.5-5.0) g/dL Urine Color Urine Appearance Urine pH (5.0-9.0) Ur Specific [place] (1.005-1.025) Urine Protein (Neg-Trace) mg/dL Urine Glucose (UA) (Negative) mg/dL Urine Ketones (Negative) mg/dL Urine Blood (Negative) Urine Nitrite (Negative) Ur Leukocyte Esterase (Negative) Urine RBC (0-2) /HPF Urine WBC (0-5) /HPF Ur Squamous Epith Cells (0-2) /HPF Urine Bacteria (None Seen) Hyaline Casts (0-2) /LPF Ethyl Alcohol < 10 mg/dL COVID-19 ([facility]) Negative (Negative) COVID-19 Clin Com See Note 02/22/22 02/22/22 Range/Units 01:45 01:45 WBC (4.8-10.8) X10*3/uL RBC (4.60-5.80) X10*6/uL Hgb (14.0-18.0) g/dl Hct (42.0-52.0) % MCV (80.0-98.0) fL MCH (27.0-33.0) pg MCHC (31.0-36.0) g/dl RDW (11.0-16.0) % Plt Count (160-400) X10*3/uL MPV (9.4-12.4) fL Immature Gran % (Auto) (0.0-0.4) % Neut % (Auto) (45-73) % Lymph % (Auto) (20-40) % [place] % (Auto) (2-11) % Eos % (Auto) (0-4) % Baso % (Auto) (0-2) % Lymph # (Auto) (1.2-4.9) X10*3/uL [place] # (Auto) (0.1-1.2) X10*3/uL Eos # (Auto) (0.0-0.4) X10*3/uL Baso # (Auto) (0.0-0.2) X10*3/uL Abs Immat Gran (auto) (0.00-0.03) X10*3/uL Absolute Neuts (auto) (2.0-8.3) x10*3/uL Absolute Nucleated RBC (0.0-0.012) X10*3/uL Nucleated RBC % (auto) (0.0-0.2) /100WBC Smear Tech's Comments PT (10.0-13.1) SEC INR (0.9-1.1) VBG pH (7.32-7.43) VBG pCO2 mmHg VBG pO2 mmHg VBG HCO3 (22-26) mmol/L VBG O2 Saturation % VBG Base Excess mmol/L Sodium (135-145) mmol/L Potassium (3.3-5.1) mmol/L Chloride (96-108) mmol/L Carbon Dioxide (22-29) mmol/L Anion Gap (12-20) BUN (9-16) mg/dL Creatinine (0.5-1.4) mg/dL Estim Creat Clear Calc Estimated GFR Random Glucose (60-115) mg/dL Lactic Acid (0.5-2.0) mmol/L Lactic Acid F/U @ 2Hr 1.3 (0.5-2.0) mmol/L Calcium (8.4-10.2) mg/dL Magnesium (1.6-2.6) mg/dL Total Bilirubin (0.0-1.0) mg/dL Direct Bilirubin (0.0-0.5) mg/dL AST (5-37) U/L ALT (0-40) U/L Alkaline Phosphatase (39-117) U/L Total Creatine Kinase (38-174) U/L Troponin I High Sens (<3.5-35.0) ng/L B-Natriuretic Peptide (<100) pg/mL Total Protein (6.5-8.0) g/dL Albumin (3.5-5.0) g/dL Urine Color Dark Yellow Urine Appearance Clear Urine pH 5.0 (5.0-9.0) Ur Specific [place] 1.025 (1.005-1.025) Urine Protein 30 (1+) H (Neg-Trace) mg/dL Urine Glucose (UA) Negative (Negative) mg/dL Urine Ketones Trace (Negative) mg/dL Urine Blood Moderate (2+) H (Negative) Urine Nitrite Negative (Negative) Ur Leukocyte Esterase Negative (Negative) Urine RBC >20 H (0-2) /HPF Urine WBC 0-5 (0-5) /HPF Ur Squamous Epith Cells 0-2 (0-2) /HPF Urine Bacteria None Seen (None Seen) Hyaline Casts 0-2 (0-2) /LPF Ethyl Alcohol mg/dL COVID-19 ([facility]) (Negative) COVID-19 Clin Com Independent Interpretation I performed an independent interpretation of an: Plain X-Ray (My x-ray interpretation: Questionable fractures on the right side undetermined age) and CT Scan (No brain bleed) Radiology Impression Discussion of test interpretation with radiology: I have reviewed the radiologist's reading. Radiologist Impression: EXAMINATION: CT brain, CT cervical spine. Axial imaging with coronal and sagittal reformatted images. This CT examination was performed using dose optimization techniques as appropriate, variously including the following: *Automated exposure control *Adjustment of mA and/or kV according to patient size (this includes techniques or standardized protocols for targeted exams where dose is matched to indication/reason for exam; i.e. extremities or head) *Use of iterative reconstruction technique. Radiation dose [address] brain; There is no midline shift. There is no mass effect. There is no hemorrhage. The basal cisterns appear patent. The posterior fossa is grossly within normal limits. There is no extra-axial collection. There is atrophy and white matter ischemic change. No fracture on the bone windows. CT cervical spine; Degenerative changes. No acute fracture or dislocation. CT/CT head/brain wo IV con IMPRESSION: Negative acute noncontrast CT of the brain. ? Atrophy and white matter ischemic changes. ? No acute fracture or dislocation of the cervical spine. Degenerative changes. Discharge Plan Discharge Clinical Impression: Fall, Fracture of rib Patient Disposition: Still a Patient Prescriptions: No Action loratadine 10 mg tablet 10 mg PO DAILY PRN (Reason: allergy symptoms) Qty: 60 3RF nitroglycerin [Nitrostat] 0.4 mg tablet, sublingual 0.4 mg sublingual Q5M PRN (Reason: Chest Pain) Qty: 60 8RF Rx Instructions: do not exceed 3 doses per episode atenolol 100 mg tablet 100 mg PO DAILY Qty: 90 8RF metformin 500 mg tablet 500 mg PO BID Qty: 180 8RF fenofibrate 160 mg tablet 160 mg PO DAILY Qty: 90 8RF simvastatin 40 mg tablet 40 mg PO BEDTIME Qty: 90 4RF (DME) Oxygen Home Use Kit See Rx Instructions .Route Rx Instructions: 2L with exertion lisinopril 40 mg tablet 40 mg PO DAILY Qty: 90 8RF triamcinolone acetonide 0.5 % cream 1 appl topical TID Qty: 15 3RF
[2022-02-21] MEDS: Acetaminophen 325 MG TABLET 975 MG PO (23:05)
[2022-02-21 23:34] LABS: Basophils Percent Auto 0.1 % (0-2); Eosinophils Percent Auto 0.2 % (0-4); Hematocrit 46.2 % (42.0-52.0); Hemoglobin 15.6 g/dl (14.0-18.0); Imm Gran Abs Auto 0.06 X10*3/uL (0.00-0.03); Imm Gran Pct Auto 0.6 % (0.0-0.4); Lymphocytes Absolute Auto 0.4 X10*3/uL (1.2-4.9); Lymphocytes Percent Auto 3.7 % (20-40); MANUAL DIFF FLAG SCAN; Mean Corpuscular HGB Conc 33.8 g/dl (31.0-36.0); Mean Corpuscular Hemoglobin 32.3 pg (27.0-33.0); Mean Corpuscular Volume 95.7 fL (80.0-98.0); Mean Platelet Volume 10.4 fL (9.4-12.4); Monocytes Absolute Auto 0.3 X10*3/uL (0.1-1.2); Monocytes Percent Auto 3.1 % (2-11); Neutrophils Absolute Auto 9.1 x10*3/uL (2.0-8.3); Neutrophils Percent Auto 92.3 % (45-73); Platelet Count 178 X10*3/uL (160-400); Red Blood Count 4.83 X10*6/uL (4.60-5.80); SCAN SMEAR FLAG 1; White Blood Count 9.8 X10*3/uL (4.8-10.8)
[2022-02-21 23:37] LABS: Venous Blood Gas Refer to POC result
[2022-02-21 23:38] LABS: VBG Base Excess 2.8 mmol/L; VBG HCO3 30 mmol/L (22-26); VBG pCO2 56 mmHg; VBG pH 7.33 (7.32-7.43); VBG pO2 29 mmHg
[2022-02-21 23:38] LABS: SLIDE REVIEW VERIFIED
[2022-02-21 23:46] LABS: Prothrombin Time 11.4 SEC (10.0-13.1)
[2022-02-21 23:48] LABS: Alanine Aminotransferase 67 U/L (0-40); Albumin Level 4.3 g/dL (3.5-5.0); Alkaline Phosphatase 53 U/L (39-117); Anion Gap 15 (12-20); Aspartate Amino Transferase 115 U/L (5-37); Bilirubin Direct 0.6 mg/dL (0.0-0.5); Bilirubin Total 1.3 mg/dL (0.0-1.0); Blood Urea Nitrogen 40 mg/dL (9-16); COVID-19 Test Negative (Negative); Calcium 9.5 mg/dL (8.4-10.2); Carbon Dioxide 26 mmol/L (22-29); Chloride 103 mmol/L (96-108); Creatinine Clr Calc Pharmacy 38.4; Estimated Glomerular Filt Rate 49; Glucose Random 168 mg/dL (60-115); IDNOW Serial# BCCEAD1C; Potassium 4.2 mmol/L (3.3-5.1); Sodium 140 mmol/L (135-145); Total Protein 7.5 g/dL (6.5-8.0)
[2022-02-21 23:52] LABS: Ethanol < 10 mg/dL; Magnesium 1.5 mg/dL (1.6-2.6)
[2022-02-21 23:53] LABS: Troponin-I High Sensitivity 18.9 ng/L (<3.5-35.0)
[2022-02-21 23:55] LABS: B Type Natriuretic Peptide 88 pg/mL (<100)
[2022-02-21 23:59] LABS: Lactic Acid 2.4 mmol/L (0.5-2.0)
[2022-02-22] VITALS (7 sets, daily range): BP systolic 124–156; BP diastolic 47–65; PULSE 67–96; RESP 15–27; TEMP 36.5–36.7; O2SAT 91–100
--- NOTE | 2022-02-22 00:59 | PC.NURSE ---
awaiting urine from patient at this time
--- NOTE | 2022-02-22 01:16 | PC.NURSE ---
pt states he cannot pee, will obtain bladder scan
[2022-02-22 01:30] LABS: Reflex Lactate? Lactic Acid Added
[2022-02-22 01:55] LABS: Appearance Urine Clear; Color Urine Dark Yellow; Glucose Urine UA Negative (Negative); Leukocyte Esterase Urine Negative (Negative); Nitrite Urine Negative (Negative); Specific Gravity - Urine 1.025 (1.005-1.025); UMIC TRIGGER UACC YES; Urine Blood Moderate (2+) (Negative); Urine Ketones Trace mg/dL (Negative); Urine Protein 30 (1+) mg/dL (Neg-Trace)
[2022-02-22 02:04] LABS: ~Lactic Acid-LAB USE ONLY 1.3 mmol/L (0.5-2.0)
[2022-02-22 02:09] LABS: Bacteria Urine None Seen (None Seen); Hyaline Casts Urine 0-2 /LPF (0-2); RBC Urine >20 /HPF (0-2); Squamous Epithelial Cell Urine 0-2 /HPF (0-2); WBC Urine 0-5 /HPF (0-5)
--- NOTE | 2022-02-22 02:57 | PC.NURSE ---
pt sleeping on stretcher at this time, respirations are even and unlabored, no apparent distress
--- NOTE | 2022-02-22 03:00 | PC.NURSE ---
this RN completed medication rec with pt, pt was able to answer confidently most medications except for Atenolol, pt was unsure if he is still taking in and did not recognize the name
--- NOTE | 2022-02-22 05:03 | PC.NURSE ---
pt sleeping, respirations are even and unlabored, no apparent distress
--- NOTE | 2022-02-22 08:21 | PC.NURSE ---
Physical therapy down to see pt. pt stood at bedside, poorly, shuffled a couple steps to the left and had to sit back down. pt desat to 76% on the 2L. pt sat up in the bed, increased o2 to 4L and encouraged pt take deep breaths through his nose.pt o2 back up to 99%
[2022-02-22 09:42] LABS: Glucose, Whole Blood 140 mg/dL (60-115)
[2022-02-22] MEDS: metFORMIN HCl 500 MG TABLET PO ×2 (09:55→20:48)
[2022-02-22] MEDS: lisinopriL 40 MG TABLET PO (09:55)
[2022-02-22] MEDS: Loratadine 10 MG TABLET PO (09:55)
--- NOTE | 2022-02-22 12:50 | MHC.CM.ED ---
Addendum entered by Gayla Hull 02/22/22 13:59: [facility] is able to offer a bed. Patient can transfer to their facility on 02/23 at 12pm. Steven SANTIAGO booked. [facility] with chart. Patient, Libia Marquis RN and Heather VASQUES aware. Original Note: Received case management consult overnight. Patient came to the ER after being found on the ground by his neighbor. Work up shows rib fracture. Physical therapy eval completed. Short term rehab is being recommended. Attempted to meet with patient in regards to discharge planning. Patient is currently sleeping. Spoke with patient's step-son/HCP, Benitez and his via telephone at [phone]. Patient lives alone, is supposed to be on oxygen 30/08 but doesn't use it. PCP verified. Copy of HCP verified to be on file. Patient received 4 Pfizer vaccines and 1 Moderna. Patient's is currently at [facility]. Benitez and his are requesting referral there. Referral made via [facility]. Continue to monitor for d/c needs.
[2022-02-22] MEDS: Magnesium Oxide 400 MG TABLET PO (14:01)
--- NOTE | 2022-02-22 18:04 | PC.NURSE ---
pt resting comfortably in bed, no complaints at this time. NAD, breathing even and unlabored. pt was educated on using his incentive spiromoter every hr.
--- NOTE | 2022-02-22 20:43 | PC.NURSE ---
Assumed care for pt at 1900. Pt aox3. Unsure of the date but aware to self, place, and situation. NSR on monitor with occassional PVC's. HR 78. Breaths are even and unlabored. O2 sat 94% on 2L nc. Abd soft and non tender. Skin warm pink and dry. Reports right sided rib pain, 8/10. No apparent distress noted. Will continue to monitor. Pt aware of plan of care.
[2022-02-22] MEDS: Atorvastatin Calcium 20 MG TABLET PO (20:48)
[2022-02-22] MEDS: Acetaminophen 325 MG TABLET 650 MG PO (21:03)
[2022-02-22] MEDS: Triamcinolone Acet 0.5 % Cream 15 GM TUBE 1 APPL TOPICAL (21:03)
[2022-02-23 02:18] VITALS: BP 164/64; PULSE 67; RESP 22; TEMP 36.6; O2SAT 96
--- NOTE | 2022-02-23 02:56 | PC.NURSE ---
Pt sleeping at the bedside in no apparent distress. Breaths are even and unlabored with equal chest rises. Will continue to monitor.
[2022-02-23 03:58] VITALS: PULSE 65; RESP 21; O2SAT 99
[2022-02-23 05:57] VITALS: PULSE 64; RESP 20; O2SAT 97
[2022-02-23 07:40] VITALS: BP 186/80; PULSE 77; RESP 25; TEMP 36.6; O2SAT 92
[2022-02-23] MEDS: metFORMIN HCl 500 MG TABLET PO (08:48)
[2022-02-23] MEDS: lisinopriL 40 MG TABLET PO (08:48)
[2022-02-23] MEDS: Fenofibrate 160 MG TABLET PO (08:48)
[2022-02-23] MEDS: Triamcinolone Acet 0.5 % Cream 15 GM TUBE 1 APPL TOPICAL (09:00)
== END 2022-02-23 11:00 | disposition skilled nursing facility (03) ==
PROVIDERS: Emergency Provider Emergency Medicine; PCP Internal Medicine
DX: S22.41XA Multiple fractures of ribs, right side, initial encounter for closed fracture (principal); R06.02 Shortness of breath; R42 Dizziness and giddiness; M54.50 Low back pain, unspecified; R51.9 Headache, unspecified; M54.2 Cervicalgia; R26.81 Unsteadiness on feet; W01.0XXA Fall on same level from slipping, tripping and stumbling without subsequent striking against object, initial encounter; Y93.9 Activity, unspecified; Y92.9 Unspecified place or not applicable; Y99.9 Unspecified external cause status; Z20.822 Contact with and (suspected) exposure to COVID-19; Z20.828 Contact with and (suspected) exposure to other viral communicable diseases; Z87.891 Personal history of nicotine dependence; Z79.899 Other long term (current) drug therapy
CPT/HCPCS: 36415; 51702; 70450; 71101; 72125; 80048; 80076; 81001; 82077; 82550; 82803; 82947; 83605; 83735; 83880; 84484; 85025; 85610; 87040; 87635; 93005; 97162; 99285

== ENCOUNTER 2023-06-16 11:26 | Emergency (ER) | payer MEDICARE, SELFPAY ==
--- NOTE | ~2023-06-16 | CT_ITS ---
CT FACIAL BONES WITH CONTRAST CLINICAL INFORMATION: Right-sided facial redness and swelling. COMPARISON: Head and cervical spine CT 02/21/2022. TECHNIQUE: A multidetector CT acquisition of the face is obtained following the administration of 85 mL of Omnipaque 350 intravenous contrast without complication. This CT examination was performed using dose optimization techniques as appropriate, variously including the following: *Automated exposure control *Adjustment of mA and/or kV according to patient size (this includes techniques or standardized protocols for targeted exams where dose is matched to indication/reason for exam; i.e. extremities or head) *Use of iterative reconstruction technique FINDINGS: There is a right central mandibular extraction socket with overlying osseous dehiscence that can be correlated clinically for evidence of infection. There is right greater than left perimandibular soft tissue swelling that could reflect cellulitis. No peripherally enhancing fluid collection to suggest an abscess. There is some stranding within the perimandibular soft tissues that can be correlated clinically for cellulitis. There is soft tissue thickening and reticulation involving the subcutaneous soft tissues of the right temporal fossa and to a lesser extent the right periorbital soft tissues that could reflect cellulitis or the sequela of trauma which can be clinically correlated. No abscess. Small retention cyst within the right maxillary sinus. The remaining paranasal sinuses remain well-aerated. Pneumatization of the optic struts bilaterally. Mastoid air cells and middle ear cavities are clear. Cerumen within the external auditory canals bilaterally. Large anterior bridging osteophytes within the cervical spine suggesting diffuse idiopathic skeletal hyperostosis, significantly indenting the dorsal oropharynx and supraglottic larynx. Intracranially there is cerebral volume loss and chronic microangiopathy. There is extensive atherosclerotic calcification involving the carotid bifurcations bilaterally resulting in a possible high-grade stenosis of the proximal right internal carotid artery that can be followed with ultrasound. CT/CT facial bones w IV con IMPRESSION: - There is a right central mandibular extraction socket with overlying osseous dehiscence that can be correlated clinically for evidence of infection. - There is some stranding within the perimandibular soft tissues that can be correlated clinically for cellulitis. There is soft tissue thickening and reticulation involving the subcutaneous soft tissues of the right temporal fossa and to a lesser extent the right periorbital soft tissues that could reflect cellulitis or the sequela of trauma which can be clinically correlated. No abscess. - Large anterior bridging osteophytes within the cervical spine suggesting diffuse idiopathic skeletal hyperostosis, significantly indenting the dorsal oropharynx and supraglottic larynx. - There is extensive atherosclerotic calcification involving the carotid bifurcations bilaterally resulting in a possible high-grade stenosis of the proximal right internal carotid artery that can be followed with ultrasound.
[2023-06-16 11:48] VITALS: BP 156/93; BP 194/80; PULSE 68; PULSE 75; RESP 14; TEMP 36.6; O2SAT 100; O2SAT 98; BMI 20.1
--- NOTE | 2023-06-16 12:07 | ED_ITS ---
HPI - General Adult General Chief complaint: General Medical Stated complaint: R FACE REDNESS,FROM SNF,?'S CELLULITIS PER EMS Time Seen by Provider: 06/16/23 11:33 Source: patient and EMS Mode of arrival: EMS Limitations: no limitations History of Present Illness HPI narrative: 87-year-old male with history of chronic hypoxic respiratory failure on chronic 3 L nasal cannula, HTN, DM2, HLD, basal cell carcinoma, presents via EMS from [facility] for evaluation of right-sided facial redness that started today when he woke up. Per EMS, he has just finished course of IV antibiotics on 06/08/23 for cellulitis. Antibiotics administered at [facility]. Patient denies pain, blurred vision, headaches, chest pain, SOB, abdominal pain, and N/V/D. Denies pain with extraocular movements. Denies recent illness or procedures. Patient denies any pain. Collacteral history obtained from nurse at [facility] - on May 30 patient was noted to have a small cut under his right eye. He developed cellulitis of the right side of his face and was started on oral doxycycline for 1 or 2 days. The doctor evaluated him there and then transition him to IV Rocephin which he received daily for 7 days. He had near complete resolution of the redness on the side of his face. Antibiotics were completed on June 07. Redness did not return until today. MD complaint: Right-sided facial redness Onset (ago): unknown Location: face Relieving factors: none Exacerbating factors: none Associated symptoms: denies other symptoms Treatments prior to arrival: none Related Data Home Medications ?Medication ?Instructions ?Recorded ?Confirmed Oxygen Home Use 02/04/21 01/27/22 Previous Rx's ?Medication ?Instructions ?Recorded loratadine 10 mg tablet 10 mg PO DAILY PRN allergy 08/27/20 symptoms #60 tabs nitroglycerin 0.4 mg sublingual 0.4 mg sublingual Q5M PRN Chest 10/16/20 tablet (Nitrostat) Pain #60 tabs atenolol 100 mg tablet 100 mg PO DAILY #90 tabs 01/20/21 metformin 500 mg tablet 500 mg PO BID #180 tabs 04/20/21 lisinopril 40 mg tablet 40 mg PO DAILY #90 tabs 08/06/21 fenofibrate 160 mg tablet 160 mg PO DAILY #90 tabs 09/29/21 triamcinolone acetonide 0.5 % 1 appl topical TID #15 grams 11/06/21 topical cream simvastatin 40 mg tablet 40 mg PO BEDTIME #90 tabs 01/04/22 amoxicillin 875 mg-potassium 1 tab PO BID #20 tabs 06/16/23 clavulanate 125 mg tablet Allergies Allergy/AdvReac Type Severity Reaction Status Date / Time No Known Allergies Allergy Verified 06/16/23 11:52 Review of Systems 2 Review of Systems: Yes all other systems are reviewed and are negative [facility] Past Medical History Medical History Angina pectoris COVID-19 vaccine series completed Elevated cholesterol Hard of hearing HTN (hypertension) Type II diabetes mellitus Surgical History Basal cell carcinoma H/O rectal polypectomy Hx of colonoscopy Family History Family History Father No problems noted. Mother No problems noted. Social History Social History Housing: House Are you a primary respiratory care program director to a significant other at home: No Do you presently have visiting nurse or other home services: No Alcohol intake: former Patient Tobacco Use Status: Former Tobacco user Tobacco use type: Cigarette e-Cigarette/Vaping Use: Never Used Second Hand Smoke Exposure: No Advance Directives: Yes Advance Directives on File: Yes Advance Directives Date on File: 02/22/22 Do you have a plan to hurt others: No Plan service: Yes Current occupational status: retired Cognitive needs: No Hearing needs: Yes Vision needs: Yes Physical Exam ED Vital Signs: Vital Signs - 24 hr 06/16/23 11:48 06/16/23 13:03 Temperature 97.8 F Pulse Rate 68 Respiratory Rate 14 Blood Pressure 194/80 H 150/62 H Pulse Oximetry 98 Oxygen Delivery Method Nasal Cannula BMI result Body Mass Index 20.1 Appearance: Alert. Oriented X3. No acute distress. HEENT: EOM intact. PERRLA. Erythema and warmth of right side of face, ocular and auricular involvement. Edema of right eye. CVS: Normal heart rate and rhythm. Pulses normal. Respiratory: No respiratory distress. Skin: Skin warm and dry. Erythema and warmth of right side of face. Neuro: Oriented X 3. No motor deficit. No sensory deficit. Medications Administered Discontinued Medications Generic Name Dose Route Start Last Admin Trade Name Zoe PRN Reason Stop Dose Admin Ampicillin Sodium/Sulbactam 100 mls @ 200 mls/hr 06/16/23 16:41 06/16/23 16:56 Sodium 3 gm/ Sodium Chloride IV 06/16/23 17:10 200 mls/hr ONCE ONE Administration Iohexol 85 ml 06/16/23 15:46 06/16/23 15:46 Iohexol 350 Mg/Ml 100 Ml Infus..Btl IV 06/16/23 15:47 85 ml ONCE ONE Administration Medical Decision Making Medical Decision Making [facility] Narrative: 87-year-old male with history of chronic hypoxic respiratory failure on chronic 3 L nasal cannula, HTN, DM2, HLD, basal cell carcinoma, presents via EMS from [facility] for evaluation of right-sided facial redness. spoke with nursing staff at [facility] who report patient received 7 days of intravenous ceftriaxone for right-sided facial cellulitis that was completed on June 07. Nurse reports complete resolution of the redness and swelling. It was noted to returned today prompting evaluation in the ER for concern of possible abscess per the provider at the facility. case d/w Dr. Spangler who evaluated the patient at the bedside. Will get CT scan to rule out occult abscess Case d/w Dr. Spangler who came to evaluate the patient at the bedside. CT scan was reviewed. No visible abscess seen. We discussed possible admission for IV antibiotics however patient is nontoxic appearing, not in any pain or having any concerning symptoms. He improved with a previous course of IV Rocephin making MRSA less likely. He was given 1 dose of IV Rocephin here in the emergency department. Comfortable discharge back to the [facility] for continuation of oral antibiotics and close monitoring. Differential Diagnosis Differential Diagnoses: The differential diagnosis associated with the presentation includes Erysipelas, orbital cellulitis, preseptal cellulitis, shingles, abscess Admission/Observation Consideration of admission/observation: Escalation of care including admission/observation considered Lab Data [facility] Lab Attestation statement: I reviewed the patient's lab results. 06/16/23 12:35 06/16/23 12:35 Labs: Lab Results 06/16/23 06/16/23 Range/Units 12:35 17:21 WBC 6.1 (4.8-10.8) X10*3/uL RBC 3.88 L (4.60-5.80) X10*6/uL Hgb 12.5 L (14.0-18.0) g/dl Hct 38.3 L (42.0-52.0) % MCV 98.7 H (80.0-98.0) fL MCH 32.2 (27.0-33.0) pg MCHC 32.6 (31.0-36.0) g/dl RDW 14.1 (11.0-16.0) % Plt Count 230 D (160-400) X10*3/uL MPV 10.0 (9.4-12.4) fL Immature Gran % (Auto) 0.3 (0.0-0.4) % Neut % (Auto) 69.3 (45-73) % Lymph % (Auto) 21.9 (20-40) % [place] % (Auto) 5.7 (2-11) % Eos % (Auto) 2.6 (0-4) % Baso % (Auto) 0.2 (0-2) % Lymph # (Auto) 1.3 (1.2-4.9) X10*3/uL [place] # (Auto) 0.4 (0.1-1.2) X10*3/uL Eos # (Auto) 0.2 (0.0-0.4) X10*3/uL Baso # (Auto) 0.0 (0.0-0.2) X10*3/uL Abs Immat Gran (auto) 0.02 (0.00-0.03) X10*3/uL Absolute Neuts (auto) 4.2 (2.0-8.3) x10*3/uL Absolute Nucleated RBC 0.000 (0.0-0.012) X10*3/uL Nucleated RBC % (auto) 0.0 (0.0-0.2) /100WBC ESR 36 H (0-15) MM/HR Sodium 140 (135-145) mmol/L Potassium 4.6 (3.3-5.1) mmol/L Chloride 107 (96-108) mmol/L Carbon Dioxide 25 (22-29) mmol/L Anion Gap 13 (12-20) BUN 19 H (9-16) mg/dL Creatinine 0.88 (0.5-1.4) mg/dL Estim Creat Clear Calc 54.1 Estimated GFR > 60 POC Glucose 84 (60-115) mg/dL Random Glucose 106 (60-115) mg/dL Calcium 9.2 (8.4-10.2) mg/dL Magnesium 1.5 L (1.6-2.6) mg/dL C-Reactive Protein 0.25 (< or = 0.50) mg/dL Independent Interpretation I performed an independent interpretation of an: CT Scan Interpretation: no visible abscess, reviewed by myself and Dr. Spangler Radiology Impression Discussion of test interpretation with radiology: I have reviewed the radiologist's reading. Radiologist Impression: CT/CT facial bones w IV con IMPRESSION: - There is a right central mandibular extraction socket with overlying osseous dehiscence that can be correlated clinically for evidence of infection. - There is some stranding within the perimandibular soft tissues that can be correlated clinically for cellulitis. There is soft tissue thickening and reticulation involving the subcutaneous soft tissues of the right temporal fossa and to a lesser extent the right periorbital soft tissues that could reflect cellulitis or the sequela of trauma which can be clinically correlated. No abscess. - Large anterior bridging osteophytes within the cervical spine suggesting diffuse idiopathic skeletal hyperostosis, significantly indenting the dorsal oropharynx and supraglottic larynx. - There is extensive atherosclerotic calcification involving the carotid bifurcations bilaterally resulting in a possible high-grade stenosis of the proximal right internal carotid artery that can be followed with ultrasound. Independent Historian Clinical information obtained from an independent historian. History obtained from or confirmed by: EMS and Other (Nurse at [facility] ) External Record Review External record reviewed: Inpatient record and Outpatient record Prescription Management I considered prescription management with: Pain Medication Chronic Conditions Patient?s care impacted by: Diabetes Critical Care Time Critical Care Time Critical Care Time: Yes Total Critical Care Time: 36 Attestation: I have personally provided critical care time exclusive of time spent on separately billable procedures. Time includes review of lab data, radiology results, discussion with attending physician and monitoring for potential decompensation. Intervention performed as documented. Discharge Plan Discharge Clinical Impression: Cellulitis of face Patient Disposition: Xfer Other Instructions: Cellulitis (DC) Additional Instructions: your lab workup today was reassuring, no elevated white blood cell count. Your exam and lack of pain were reassuring. Your CT scan did not show any evidence of abscess. Your given 1 dose of IV antibiotics in the emergency department and are being started on oral antibiotics 2 times a day for the next 10 days. Monitor closely at home for worsening redness, swelling or development of pain or fevers. Follow-up with your doctor. If you have worsening symptoms return to the emergency department CT/CT facial bones w IV con IMPRESSION: - There is a right central mandibular extraction socket with overlying osseous dehiscence that can be correlated clinically for evidence of infection. - There is some stranding within the perimandibular soft tissues that can be correlated clinically for cellulitis. There is soft tissue thickening and reticulation involving the subcutaneous soft tissues of the right temporal fossa and to a lesser extent the right periorbital soft tissues that could reflect cellulitis or the sequela of trauma which can be clinically correlated. No abscess. - Large anterior bridging osteophytes within the cervical spine suggesting diffuse idiopathic skeletal hyperostosis, significantly indenting the dorsal oropharynx and supraglottic larynx. - There is extensive atherosclerotic calcification involving the carotid bifurcations bilaterally resulting in a possible high-grade stenosis of the proximal right internal carotid artery that can be followed with ultrasound. Prescriptions: New amoxicillin-pot clavulanate 875-125 mg tablet 1 tab PO BID Qty: 20 0RF No Action loratadine 10 mg tablet 10 mg PO DAILY PRN (Reason: allergy symptoms) Qty: 60 3RF nitroglycerin [Nitrostat] 0.4 mg tablet, sublingual 0.4 mg sublingual Q5M PRN (Reason: Chest Pain) Qty: 60 8RF Rx Instructions: do not exceed 3 doses per episode atenolol 100 mg tablet 100 mg PO DAILY Qty: 90 8RF metformin 500 mg tablet 500 mg PO BID Qty: 180 8RF fenofibrate 160 mg tablet 160 mg PO DAILY Qty: 90 8RF simvastatin 40 mg tablet 40 mg PO BEDTIME Qty: 90 4RF (DME) Oxygen Home Use Kit See Rx Instructions .Route Rx Instructions: 2L with exertion lisinopril 40 mg tablet 40 mg PO DAILY Qty: 90 8RF triamcinolone acetonide 0.5 % cream 1 appl topical TID Qty: 15 3RF Print Language: Japanese
[2023-06-16 12:43] LABS: MANUAL DIFF FLAG NO
[2023-06-16 12:44] LABS: Basophils Percent Auto 0.2 % (0-2); Eosinophils Absolute Auto 0.2 X10*3/uL (0.0-0.4); Eosinophils Percent Auto 2.6 % (0-4); Hematocrit 38.3 % (42.0-52.0); Hemoglobin 12.5 g/dl (14.0-18.0); Imm Gran Abs Auto 0.02 X10*3/uL (0.00-0.03); Imm Gran Pct Auto 0.3 % (0.0-0.4); Lymphocytes Absolute Auto 1.3 X10*3/uL (1.2-4.9); Lymphocytes Percent Auto 21.9 % (20-40); Mean Corpuscular HGB Conc 32.6 g/dl (31.0-36.0); Mean Corpuscular Hemoglobin 32.2 pg (27.0-33.0); Mean Corpuscular Volume 98.7 fL (80.0-98.0); Monocytes Absolute Auto 0.4 X10*3/uL (0.1-1.2); Monocytes Percent Auto 5.7 % (2-11); Neutrophils Absolute Auto 4.2 x10*3/uL (2.0-8.3); Neutrophils Percent Auto 69.3 % (45-73); Platelet Count 230 X10*3/uL (160-400); Red Blood Count 3.88 X10*6/uL (4.60-5.80); Red Cell Distribution Width 14.1 % (11.0-16.0); White Blood Count 6.1 X10*3/uL (4.8-10.8)
[2023-06-16 12:57] LABS: Anion Gap 13 (12-20); Blood Urea Nitrogen 19 mg/dL (9-16); C Reactive Protein 0.25 mg/dL (< or = 0.50); Calcium 9.2 mg/dL (8.4-10.2); Carbon Dioxide 25 mmol/L (22-29); Chloride 107 mmol/L (96-108); Creatinine Clr Calc Pharmacy 54.1; Estimated Glomerular Filt Rate > 60; Glucose Random 106 mg/dL (60-115); Magnesium 1.5 mg/dL (1.6-2.6); Potassium 4.6 mmol/L (3.3-5.1); Sodium 140 mmol/L (135-145)
[2023-06-16 13:03] VITALS: BP 150/62
[2023-06-16 13:33] LABS: Erythrocyte Sedimentation Rate 36 MM/HR (0-15)
[2023-06-16] MEDS: iohexoL 350 MG/ML 100 ML INFUS..BTL 85 ML IV (15:46)
[2023-06-16] MEDS: Ampicillin Sodium/Sulbactam Na 3 GM in 0.9 % Sodium Chloride 100 ML IV (16:56)
[2023-06-16 17:25] LABS: Glucose, Whole Blood 84 mg/dL (60-115)
--- NOTE | 2023-06-16 19:00 | PC.NURSE ---
Attempted to call [facility] to give nurse to nurse report twice and no answer at the facility.
[2023-06-16 19:13] VITALS: BP 197/74; PULSE 83; RESP 18; TEMP 36.7; O2SAT 97
--- NOTE | 2023-06-16 19:16 | PC.NURSE ---
Took over care from THONG Hernandes, pt has an elevated blood pressure, Dr. Pearson aware, okay to go back to facility and take his medications.
[2023-06-16 19:27] VITALS: BP 185/71; PULSE 79
[2023-06-16 20:29] VITALS: BP 185/71; PULSE 79; RESP 20; TEMP 36.7; O2SAT 97
== END 2023-06-16 20:31 | disposition other institution (70) ==
PROVIDERS: Physician Assistant; Emergency Provider Emergency Medicine; PCP Emergency Medicine
DX: L03.211 Cellulitis of face (principal); R51.9 Headache, unspecified; E11.9 Type 2 diabetes mellitus without complications; I10 Essential (primary) hypertension; Z79.84 Long term (current) use of oral hypoglycemic drugs; Z79.899 Other long term (current) drug therapy; Z87.891 Personal history of nicotine dependence
CPT/HCPCS: 36415; 70487; 80048; 82947; 83735; 85025; 85652; 86140; 96365; 99284; J0295; Q9967